=== PATIENT | male | born 1975 | race African-American/Black ===

== ENCOUNTER 2016-12-09 01:59 | Inpatient (IN) | payer MEDICARE, MEDICAID ==
[~2016-12-09] VITALS: Ht 185.4 cm; Wt 87.4 kg
[2016-12-09 02:24] LABS: BASOPHILS % (AUTO) 0.4 % (0.0-2.0); HEMATOCRIT 35.5 % (41-53); HEMOGLOBIN 11.1 g/dL (13.5-17.5); LYMPHOCYTES # (AUTO) 2.9 K/uL (1.0-4.8); LYMPHOCYTES % (AUTO) 37.1 % (22.0-44.0); MEAN CORPUSCULAR HEMOGLOBIN 23.9 pg (26.0-34.0); MEAN CORPUSCULAR HGB CONC 31.4 G/dL (31.0-37.0); MEAN CORPUSCULAR VOLUME 76 fL (80-100); MONOCYTES # (AUTO) 0.7 K/uL (0.1-1.0); MONOCYTES % (AUTO) 8.5 % (2.0-9.0); NEUTROPHILS # (AUTO) 3.6 K/uL (1.8-7.7); PLATELET COUNT (AUTO) 386 K/uL (150-450); RED BLOOD CELL COUNT(AUTO) 4.66 MIL/uL (4.50-5.90); RED CELL DISTRIBUTION WIDTH 16.9 % (11.5-14.5); WHITE BLOOD COUNT (AUTO) 7.7 K/uL (4.5-11.0)
[2016-12-09] MEDS ORDERED: HALOPERIDOL LACTATE 5 MG/ML VIAL IM ONE (02:30)
[2016-12-09] MEDS ORDERED: LORazepam 2 MG TABLET PO PRN (02:30)
[2016-12-09] MEDS ORDERED: LORazepam 2 MG/ML VIAL IM ONE (02:30)
[2016-12-09] MEDS ORDERED: DiphenhydrAMINE HCL 50 MG/ML VIAL IM ONE (02:30)
[2016-12-09] MEDS ORDERED: HALOPERIDOL 5 MG TABLET PO PRN (02:30)
[2016-12-09] MEDS ORDERED: ZOLPIDEM TARTRATE 10 MG TABLET PO PRN (02:30)
[2016-12-09 02:34] LABS: ANION GAP 7 mmol/L (8-16); CALCIUM, TOTAL 8.4 mg/dL (8.8-10.5); CARBON DIOXIDE 29 mmol/L (22-29); CHLORIDE 104 mmol/L (98-107); CREATININE 1.49 mg/dL (0.60-1.30); GLOMERULAR FILTR. RATE CALC > 60 mL/min (>60); POTASSIUM 4.5 mmol/L (3.5-5.1); SODIUM SERUM 140 mmol/L (136-145); UREA NITROGEN, BLOOD 14 mg/dL (7-18)
[2016-12-09 02:41] LABS: ALANINE AMINOTRANSFERASE 24 U/L (12-78); ALBUMIN 3.5 g/dL (3.4-5.0); ASPARTATE AMINOTRANSFERASE 18 U/L (15-37); BILIRUBIN,TOTAL 0.2 mg/dL (0.1-1.0); TOTAL PROTEIN, SERUM 7.2 g/dL (6.4-8.2)
[2016-12-09 02:56] LABS: RBC MORPHOLOGY COMMENT ABNORMAL RBC MORPH
[2016-12-09 04:27] VITALS: BP 107/69
[2016-12-09 08:07] VITALS: BP 112/66
[2016-12-09] MEDS: SERTRALINE HCL 50 MG TABLET PO SCH (14:17)
[2016-12-09] MEDS ORDERED: MAG HYDROX/AL HYDROX/SIMETH ES 30 ML SUSPENSION UDCUP PO PRN (14:45)
[2016-12-09] MEDS ORDERED: ALBUTEROL SULFATE HFA 90 MCG/PUFF 8 GM INHALER IH PRN (14:45)
[2016-12-09] MEDS ORDERED: ACETAMINOPHEN 325 MG TABLET PO PRN (14:45)
[2016-12-09] MEDS ORDERED: ONDANSETRON HCL 4 MG TABLET PO PRN (14:45)
[2016-12-09] MEDS ORDERED: LOPERAMIDE HCL 2 MG CAPSULE PO PRN (14:45)
[2016-12-09] MEDS ORDERED: BENZOCAINE/MENTHOL LOZENGE [8 LOZENGES/PACKET] MM PRN (14:45)
[2016-12-09] MEDS ORDERED: BACITRACIN 28.4 GM OINTMENT TP PRN (14:45)
[2016-12-09] MEDS ORDERED: MAGNESIUM HYDROXIDE SUSPENSION 30 ML UDCUP PO PRN (14:45)
[2016-12-09] MEDS ORDERED: PETROLATUM,WHITE 71 GM JELLY TP PRN (14:45)
[2016-12-09] MEDS ORDERED: IBUPROFEN 600 MG TABLET PO PRN (14:45)
[2016-12-09] MEDS ORDERED: CloNIDine HCL 0.1 MG TABLET PO PRN (14:45)
[2016-12-09 20:09] VITALS: BP 116/70
[2016-12-10] MEDS: SERTRALINE HCL 50 MG TABLET PO SCH (08:55)
[2016-12-10 09:31] VITALS: BP 121/63
[2016-12-10 22:57] VITALS: BP 123/72
[2016-12-11] MEDS: SERTRALINE HCL 50 MG TABLET PO SCH (08:43)
[2016-12-11 09:40] VITALS: BP 149/87
[2016-12-11] MEDS: TERBINAFINE HCL 1% 30 GM CREAM TP SCH (13:00)
[2016-12-11 18:26] VITALS: BP 122/79
[2016-12-12 08:00] VITALS: BP 110/57
[2016-12-12] MEDS: SERTRALINE HCL 50 MG TABLET PO SCH (09:03)
[2016-12-12] MEDS: TERBINAFINE HCL 1% 30 GM CREAM TP SCH (09:03)
[2016-12-12] MEDS: MAGNESIUM SULFATE 454 GM BOX TP SCH (09:04)
[2016-12-12 16:00] VITALS: BP 118/61
[2016-12-13] MEDS: TERBINAFINE HCL 1% 30 GM CREAM TP SCH (08:54)
[2016-12-13] MEDS: SERTRALINE HCL 50 MG TABLET PO SCH (08:54)
[2016-12-13] MEDS: MAGNESIUM SULFATE 454 GM BOX TP SCH (08:54)
[2016-12-13 08:56] VITALS: BP 128/75
[2016-12-13 16:48] VITALS: BP 124/66
[2016-12-14 08:07] VITALS: BP 153/93
[2016-12-14] MEDS: SERTRALINE HCL 50 MG TABLET PO SCH (12:14)
[2016-12-14] MEDS: TERBINAFINE HCL 1% 30 GM CREAM TP SCH (12:17)
[2016-12-14] MEDS: MAGNESIUM SULFATE 454 GM BOX TP SCH (12:17)
[2016-12-14 16:38] VITALS: BP 142/74
[2016-12-15 08:06] VITALS: BP 131/76
[2016-12-15] MEDS: MAGNESIUM SULFATE 454 GM BOX TP SCH (09:00)
[2016-12-15] MEDS: TERBINAFINE HCL 1% 30 GM CREAM TP SCH (09:00)
[2016-12-15] MEDS: SERTRALINE HCL 50 MG TABLET PO SCH (10:40)
[2016-12-15] MEDS ORDERED: SERT50TA12 PO (12:12)
== END 2016-12-15 14:45 | disposition home or self-care (01) | DRG 885 ==
LOC: EMS 02:02 → 3EC 04:12 → 3EI 12-13 22:39
DX: F20.0 Paranoid schizophrenia (principal); R45.851 Suicidal ideations; R45.850 Homicidal ideations; F25.9 Schizoaffective disorder, unspecified; K59.00 Constipation, unspecified; E83.51 Hypocalcemia; F17.210 Nicotine dependence, cigarettes, uncomplicated; F12.90 Cannabis use, unspecified, uncomplicated; Z71.6 Tobacco abuse counseling; Z71.51 Drug abuse counseling and surveillance of drug abuser
CPT/HCPCS: 96372; 99285; G0480; J1200; J1630; J2060; J3535; Q0162